=== PATIENT | female | born 1950 | race Caucasian/White ===

== ENCOUNTER 2016-05-07 12:04 | Emergency (ER) | payer OTHER ==
[~2016-05-07 12:04] MED LIST: ALPRAZOLAM0.5 MG PO; AZITHROMYCIN250 MG PO; B-1100 MG PO; COREG 3.125M3.125 MG PO; DAILY MULTIPLE1 EAC1 PO; FOLIC ACID 1 MG1 MG PO; IBUPROFEN800 MG PO; NORVASC 5 MG TAB5 MG PO; REMERON 15 MG T15 MG PO; SINEQUAN CAP 5050 MG PO; THIAMINE HCL100 MG PO; TRAZODONE HCL50 MG PO; TYLENOL 325MG325 MG PO
[2016-05-07 15:39] LABS: HEMOGLOBIN 17.2 gm/dl (12.3-15.3); RED BLOOD COUNT 4.81 M/UL (4.00-5.10); WHITE BLOOD COUNT 7.4 K/UL (4.5-11.0)
[2016-05-07 17:09] LABS: BUN/CREATININE RATIO 15 (0-10)
[2016-11-02] MEDS ORDERED: DIOVAN80 MG PO (17:03)
[2016-11-02] MEDS ORDERED: SERTRALINE HCL100 MG PO (17:06)
[2016-11-02] MEDS ORDERED: ZANTAC 150 MG150 MG PO (17:06)
[2016-11-06] MEDS ORDERED: BACTRIM DS TAB1 EACH PO (11:27)
[2016-11-06] MEDS ORDERED: THIAMINE HCL100 MG PO (11:28)
[2016-11-06] MEDS ORDERED: FOLIC ACID 1 MG1 MG PO (11:28)
[2016-11-06] MEDS ORDERED: COQ-10100 MG PO (11:32)
[2016-11-06] MEDS ORDERED: MULTI-VITAMIN1 EACH PO (11:33)
== END 2016-05-07 18:15 | disposition left against medical advice (07) ==
LOC: ER1 12:04
PROVIDERS: Student in an Organized Health Care Education/Training Program
DX: E87.6 Hypokalemia (principal); R51 Headache; I10 Essential (primary) hypertension; F17.210 Nicotine dependence, cigarettes, uncomplicated; Z88.8 Allergy status to other drugs, medicaments and biological substances
CPT/HCPCS: 36415; 71010; 80053; 81001; 82550; 82553; 83690; 83874; 84484; 85025; 85610; 85730; 87086; 93005; 96374; 96375; 99284; G0480; J1200; J2765; J2930; J7030

== ENCOUNTER 2016-06-18 15:02 | Emergency (ER) | payer OTHER ==
[2016-11-02] MEDS ORDERED: DIOVAN80 MG PO (17:03)
[2016-11-02] MEDS ORDERED: SERTRALINE HCL100 MG PO (17:06)
[2016-11-02] MEDS ORDERED: ZANTAC 150 MG150 MG PO (17:06)
[2016-11-06] MEDS ORDERED: BACTRIM DS TAB1 EACH PO (11:27)
[2016-11-06] MEDS ORDERED: FOLIC ACID 1 MG1 MG PO (11:28)
[2016-11-06] MEDS ORDERED: THIAMINE HCL100 MG PO (11:28)
[2016-11-06] MEDS ORDERED: COQ-10100 MG PO (11:32)
[2016-11-06] MEDS ORDERED: MULTI-VITAMIN1 EACH PO (11:33)
== END 2016-06-18 17:55 | disposition left against medical advice (07) ==
LOC: ER1 15:02
DX: Z53.21 Procedure and treatment not carried out due to patient leaving prior to being seen by health care provider (principal)

== ENCOUNTER 2016-06-19 01:15 | Emergency (ER) | payer OTHER ==
[2016-11-02] MEDS ORDERED: DIOVAN80 MG PO (17:03)
[2016-11-02] MEDS ORDERED: ZANTAC 150 MG150 MG PO (17:06)
[2016-11-02] MEDS ORDERED: SERTRALINE HCL100 MG PO (17:06)
[2016-11-06] MEDS ORDERED: BACTRIM DS TAB1 EACH PO (11:27)
[2016-11-06] MEDS ORDERED: THIAMINE HCL100 MG PO (11:28)
[2016-11-06] MEDS ORDERED: FOLIC ACID 1 MG1 MG PO (11:28)
[2016-11-06] MEDS ORDERED: COQ-10100 MG PO (11:32)
[2016-11-06] MEDS ORDERED: MULTI-VITAMIN1 EACH PO (11:33)
== END 2016-06-19 03:59 | disposition home or self-care (01) ==
LOC: ER1 01:15
DX: F41.1 Generalized anxiety disorder (principal); I10 Essential (primary) hypertension; F32.9 Major depressive disorder, single episode, unspecified; F17.210 Nicotine dependence, cigarettes, uncomplicated; Z88.8 Allergy status to other drugs, medicaments and biological substances
CPT/HCPCS: 99283

== ENCOUNTER 2016-06-22 05:47 | Emergency (ER) | payer OTHER ==
[2016-11-02] MEDS ORDERED: DIOVAN80 MG PO (17:03)
[2016-11-02] MEDS ORDERED: ZANTAC 150 MG150 MG PO (17:06)
[2016-11-02] MEDS ORDERED: SERTRALINE HCL100 MG PO (17:06)
[2016-11-06] MEDS ORDERED: BACTRIM DS TAB1 EACH PO (11:27)
[2016-11-06] MEDS ORDERED: FOLIC ACID 1 MG1 MG PO (11:28)
[2016-11-06] MEDS ORDERED: THIAMINE HCL100 MG PO (11:28)
[2016-11-06] MEDS ORDERED: COQ-10100 MG PO (11:32)
[2016-11-06] MEDS ORDERED: MULTI-VITAMIN1 EACH PO (11:33)
== END 2016-06-22 06:58 | disposition home or self-care (01) ==
LOC: ER1 05:47
DX: G47.00 Insomnia, unspecified (principal); I10 Essential (primary) hypertension; F17.200 Nicotine dependence, unspecified, uncomplicated; Z88.8 Allergy status to other drugs, medicaments and biological substances
CPT/HCPCS: 99283

== ENCOUNTER 2016-06-23 11:41 | Emergency (ER) | payer OTHER ==
[2016-06-23 13:21] LABS: HEMOGLOBIN 17.3 gm/dl (12.3-15.3); RED BLOOD COUNT 4.65 M/UL (4.00-5.10); WHITE BLOOD COUNT 5.8 K/UL (4.5-11.0)
[2016-06-23 13:54] LABS: BUN/CREATININE RATIO 18 (0-10)
[2016-11-02] MEDS ORDERED: DIOVAN80 MG PO (17:03)
[2016-11-02] MEDS ORDERED: SERTRALINE HCL100 MG PO (17:06)
[2016-11-02] MEDS ORDERED: ZANTAC 150 MG150 MG PO (17:06)
[2016-11-06] MEDS ORDERED: BACTRIM DS TAB1 EACH PO (11:27)
[2016-11-06] MEDS ORDERED: THIAMINE HCL100 MG PO (11:28)
[2016-11-06] MEDS ORDERED: FOLIC ACID 1 MG1 MG PO (11:28)
[2016-11-06] MEDS ORDERED: COQ-10100 MG PO (11:32)
[2016-11-06] MEDS ORDERED: MULTI-VITAMIN1 EACH PO (11:33)
== END 2016-06-23 18:10 | disposition home or self-care (01) ==
LOC: ER1 11:41
PROVIDERS: Physician Assistant
DX: R07.1 Chest pain on breathing (principal); M54.6 Pain in thoracic spine; E87.6 Hypokalemia; I10 Essential (primary) hypertension
CPT/HCPCS: 36415; 71010; 80053; 81001; 82550; 82553; 83874; 84484; 85025; 93005; 99285